=== PATIENT | male | born 1965 ===

== ENCOUNTER 2016-05-08 08:32 | Emergency (ER) | payer BC ==
[2016-05-08 08:56] VITALS: BP 152/97
--- NOTE | 2016-05-08 09:32 | UC ---
Lower Extremity/Ankle HPI - HPI Summary HPI Summary: Redness, pain, swelling in R zarate starting yesterday. Pt has DM II and has had cellulitis in past. Usually treats with keflex. Thinks he was bitten by fleas some weeks ago. - History of Current Complaint Chief Complaint: UCLowerExtremity Stated Complaint: RED AREA ON LEG Time Seen by Provider: 05/08/16 09:14 Hx Obtained From: Patient Onset/Duration: Gradual Onset, Lasting Hours Severity Initially: Mild Severity Currently: Mild Aggravating Factor(s): Standing, Ambulation Alleviating Factor(s): Rest, Elevation Able to Bear Weight: Yes - Allergies/Home Medications Allergies/Adverse Reactions: Allergies Allergy/AdvReac Type Severity Reaction Status Date / Time No Known Allergies Allergy Verified 05/08/16 08:56 Home Medications: Home Medications Levothyroxine Sodium [Synthroid] 25 mcg PO 05/08/16 [History] Lisinopril TAB* [Prinivil TAB 5 MG*] 5 mg PO DAILY 05/08/16 [History Confirmed 05/08/16] Omeprazole [Prilosec CAP 10 MG] 10 mg PO 05/08/16 [History] metFORMIN* [Glucophage*] 05/08/16 [History] PMH/Surg Hx/FS Hx/Imm Hx Endocrine History Of: Reports: Diabetes, Thyroid Disease Cardiovascular History Of: Reports: Hypertension - Surgical History Surgical History: Yes Surgery Procedure, Year, and Place: [facility] - Family History Known Family History: Positive: Diabetes - Social History Occupation: Employed Full-time - driver/merchandiser Alcohol Use: None Substance Use Type: None Smoking Status (MU): Never Smoked Tobacco Review of Systems Constitutional: Negative Skin: Rash Eyes: Negative ENT: Negative Respiratory: Negative Cardiovascular: Negative Gastrointestinal: Negative Genitourinary: Negative Motor: Negative Neurovascular: Negative Musculoskeletal: Negative Neurological: Negative Psychological: Negative All Other Systems Reviewed And Are Negative: Yes Physical Exam Triage Information Reviewed: Yes Appearance: Well-Appearing, No Pain Distress, Obese Vital Signs: Initial Vital Signs Temp 97.5 F 05/08/16 08:51 Pulse 95 05/08/16 08:51 Resp 20 05/08/16 08:51 BP 152/97 05/08/16 08:51 Pulse Ox 98 05/08/16 08:51 Vital Signs Reviewed: Yes Eye Exam: Normal Eyes: Positive: Conjunctiva Clear ENT Exam: Normal ENT: Positive: Normal ENT inspection, Hearing grossly normal, Pharynx normal, TMs normal Dental: Negative: Percussion Tenderness @, Dental Fracture @ Neck exam: Normal Neck: Positive: Supple, Nontender, No Lymphadenopathy Respiratory Exam: Normal Respiratory: Positive: Chest non-tender, Lungs clear, Normal breath sounds, No respiratory distress, No accessory muscle use Cardiovascular Exam: Normal Cardiovascular: Positive: RRR, No Murmur Musculoskeletal Exam: Normal Musculoskeletal: Positive: Strength Intact, ROM Intact Neurological Exam: Normal Psychological Exam: Normal Skin Exam: Other - poorly defined erythema and swelling on R anterior zarate Lower Extremity Course/Dx - Differential Dx/Diagnosis Provider Diagnoses: R lower leg erythema Discharge - Discharge Plan Condition: Stable Disposition: HOME Prescriptions: Cephalexin CAP* [Keflex 500 CAP*] 500 mg PO QID #28 cap Patient Education Materials: Cellulitis (ED) Forms: *Work Release Referrals: No Primary Care Phys,NOPCP [Primary Care Provider] - Additional Instructions: Elevate the leg as much as possible and apply frequent warm soaks.
== END 2016-05-08 09:58 | disposition home or self-care (01) ==
LOC: UCEAST 08:32
DX: L53.9 Erythematous condition, unspecified (principal); E11.9 Type 2 diabetes mellitus without complications
CPT/HCPCS: 99202; G0463